=== PATIENT | female | born 1995 | race Caucasian/White ===

== ENCOUNTER 2019-11-17 14:22 | Emergency (ER) | payer OTHER ==
[~2019-11-17] VITALS: Ht 149.9 cm; Wt 49.9 kg
[2019-11-17] MEDS ORDERED: MUPIROCIN22 GM TOP (14:47)
[2019-11-17] MEDS ORDERED: VALACYCLOVIR500 MG PO (14:47)
[2019-11-17] MEDS ORDERED: NAPROSYN500 MG PO (14:48)
--- NOTE | 2019-11-17 14:48 | NUR ---
Verbal order by Dr. Cintron for a rapid strep test. Upon entering the room and introducing myself, I informed pt. I was there to do a strep test. Pt. got aggitated and said "I don't have strep! I refuse the test!" I left the room and advised Dr. Cintron of pt.'s refusal and he said "That's fine."
[2019-11-17] MEDS ORDERED: BACTRIM DS TAB1 EACH PO (14:51)
--- NOTE | 2019-11-17 14:57 | Emergency Department Note ---
History of Present Illnes History of Present Illness History of Present Illness This is a 24 year old female . Historian: Patient Arrival Mode: Car Continuous Loft Operator Required: No Onset (how long ago): week(s) (1 WEEK OF HERPES LESIONS AROUND HER LIPS NOW MORE PAIN HAS HX OF HERPES AND MRSA? ACCORDING TO HER) Severity: moderate Onset quality: gradual Timing of current episode: constant Progression: unchanged Chronicity: recurrent Context: Denies recent illness, Denies recent surgery, Denies recent immobilization, Denies recent travel, Denies trauma/injury, Denies new medications, Denies hx of DVT/PE, Denies non-compliance w/ medications, Denies other Relieving factors: none Exacerbating factors: eating Associated symptoms: Denies cough, Denies fever/chills Treatments prior to arrival: none Past Medical/Family History Physician Review I have reviewed the patient's past medical and family history. Any updates have been documented here. Past Medical History Recent Fever: No Clinical Suspicion of Infectio: No New/Unexplained Change in Ment: No Past Medical History: Asthma Past Surgical History: Cholecysctectomy Other Surgery: SPLENECTOMY Social History Smoking Cessation: Current every day smoker Alcohol Use: Occasional Any Illegal Drug Use: No Review of Systems Review of Systems Constitutional: Denies fever EENTM: Reports mouth pain Respiratory: Reports no symptoms Gastrointestinal: Reports no symptoms Genitourinary: Reports no symptoms Integumentary: Reports rash Review of other systems: All other systems negative Physical Exam Related Data Vital signs reviewed: Yes Physical Exam CONSTITUTIONAL Constitutional: Present well-developed, Present well-nourished; Absent distressed, Absent ill appearing HENT HENT: Present normocephalic EYES Eyes: Reports conjunctivae normal NECK Neck: Present supple PULMONARY Pulmonary: Present effort normal, Present breath sounds normal CARDIOVASCULAR Cardiovascular: Present regular rhythm GASTROINTESTINAL Abdominal: Present soft GENITOURINARY SKIN Skin: Present other (lesions periorally area, crusty yellow with scarring) MUSCULOSKELETAL Musculoskeletal: Absent edema NEUROLOGICAL Neurological: Present alert, Present oriented x 3 PSYCHOLOGICAL Psychological: Present mood/affect normal Assessment & Plan Medical Decision Making MDM impetigo, MRSA, Herpes labialis Assessment & Plan Final Impression: (1) Herpes labialis (2) Impetigo Depart Disposition: HOME, SELF-FDC Meds Active Scripts Sulfamethoxazole/Trimethoprim (BACTRIM DS TABLET) 1 Each Tablet, 1 EACH PO BID for 7 Days, #14 Prov:NABIL PEOPLES MD 11/17/19 Naproxen (NAPROSYN) 500 Mg Tablet, 500 MG PO BID for 7 Days, #14 TAB Prov:NABIL PEOPLES MD 11/17/19 Valacyclovir Hcl (VALACYCLOVIR) 500 Mg Tablet, 2000 MG PO BID for 1 Day, #10 TAB Prov:NABIL PEOPLES MD 11/17/19 Mupirocin (MUPIROCIN) 22 Gm Oint...g., 22 GM TOP TID for 7 Days, #1 TUBE Prov:NABIL PEOPLES MD 11/17/19 NABIL PEOPLES MD Nov 17, 2019 14:57
== END 2019-11-17 15:10 | disposition home or self-care (01) ==
LOC: FSED 14:22
DX: B00.1 Herpesviral vesicular dermatitis (principal); L01.00 Impetigo, unspecified; F17.210 Nicotine dependence, cigarettes, uncomplicated
CPT/HCPCS: 99282

== ENCOUNTER 2020-04-14 01:44 | Emergency (ER) | payer OTHER ==
[~2020-04-14 01:44] MED LIST: BACTRIM DS TAB1 EACH PO; MUPIROCIN22 GM TOP; NAPROSYN500 MG PO; VALACYCLOVIR500 MG PO
--- NOTE | 2020-04-14 01:54 | NUR ---
Patient left without being triaged
== END 2020-04-14 01:58 | disposition left against medical advice (07) ==
LOC: ER 01:58
DX: K08.89 Other specified disorders of teeth and supporting structures (principal)

== ENCOUNTER 2020-05-24 22:37 | Emergency (ER) | payer OTHER ==
[~2020-05-24] VITALS: Ht 149.9 cm; Wt 52.2 kg
[2020-05-24] MEDS ORDERED: ORPHENADRINE CITRATE 30 MG/ML VIAL IM ONE (22:45)
[2020-05-24] MEDS ORDERED: ACETAMINOPHEN/CODEINE 300MG - 30MG TAB PO ONE (22:45)
[2020-05-24] MEDS ORDERED: KETOROLAC TROMETHAMINE 60 MG/2 ML VIAL IM ONE (22:45)
[2020-05-24 23:29] LABS: CLARITY,URINE CLOUDY (CLEAR); COLOR,URINE AMBER (YELLOW); LEUKOCYTE ESTERASE ,URINE TRACE (NEGATIVE)
[2020-05-24 23:30] LABS: KETONES,URINE 1+ (NEGATIVE); NITRITE,URINE NEGATIVE (NEGATIVE); PROTEIN,URINE DIPSTICK 1+ (NEGATIVE)
[2020-05-24 23:31] LABS: PREGNANCY TEST, URINE NEGATIVE (NEGATIVE)
[2020-05-24 23:44] LABS: BACTERIA,URINE MANY /HPF; EPITHELIAL CELLS,URINE FEW /LPF; RBC,URINE 21-50 /HPF (0-5); WBC,URINE (MAN) 21-50 /HPF (0-5)
[2020-05-25 02:04] VITALS: BP 114/80
== END 2020-05-25 02:34 | disposition home or self-care (01) ==
LOC: ER 22:40
DX: S32.2XXA Fracture of coccyx, initial encounter for closed fracture (principal); N39.0 Urinary tract infection, site not specified; J45.909 Unspecified asthma, uncomplicated; W01.0XXA Fall on same level from slipping, tripping and stumbling without subsequent striking against object, initial encounter; Z86.73 Personal history of transient ischemic attack (TIA), and cerebral infarction without residual deficits
CPT/HCPCS: 72040; 72100; 72220; 73502; 81001; 81025; 99284; J1885; J2360